=== PATIENT | male | born 1960 | race Caucasian/White ===

== ENCOUNTER 2019-05-08 18:47 | Emergency (ER) | payer BC, SELFPAY ==
--- NOTE | ~2019-05-08 | XR_ITS ---
EXAMINATION: XR chest 2V 05/08/2019 19:37 INDICATION: Chest tightness. History of A. fib. PROCEDURE: 2 view chest COMPARISON: No prior studies for comparison. FINDINGS: The lungs are clear. The cardiomediastinal silhouette is within normal limits. There are no pleural effusions. There is no pneumothorax suspected. IMPRESSION: 1: NO ACUTE CARDIOPULMONARY DISEASE. Reviewed, dictated and finalized at location A. STRIAL FURNACE FABRICATOR
[2019-05-08 18:44] VITALS: BP 178/93; PULSE 69; RESP 14; TEMP 36.7; O2SAT 100
--- NOTE | 2019-05-08 18:50 | ECG_ITS ---
Measurements Intervals [place] Rate: 62 P: 24 NE: 142 QRS: -40 QRSD: 113 T: 4 QT: 392 QTc: 399 Interpretive Statements SINUS RHYTHM LEFT AXIS DEVIATION INTRAVENTRICULAR CONDUCTION DELAY NONSPECIFIC ST ELEVATION- ANTERIOR LEADS BORDERLINE T WAVE ABNORMALITY- INFERIOR LEADS BASELINE ARTIFACT- I, II, III, AVR, AVL BORDERLINE ECG Electronically Signed On 05-08-2019 20:50:55 CERTIFIED PROFESSIONAL ERGONOMIST by Alvin Cook D.O.
--- NOTE | 2019-05-08 19:07 | ED.CHESTPAIN ---
HPI - Chest Pain General Chief Complaint: Chest Pain Stated Complaint: chest pain Time Seen by Provider: 05/08/19 19:03 Source: patient Mode of arrival: EMS Limitations: no limitations History of Present Illness HPI narrative: A 58 y/o male presents to the ED with c/o midsternal chest tightness. Pt states that tonight at 1600 after he ate spaghetti and meatballs, the chest tightness started. He notes that the chest tightness has been constant and is accompanied by high blood pressure. Pt denies CP, N/V, diaphoresis, chills, and SOB. He does not note any aggravating or alleviating factors for his symptoms. Pt did not have any treatment prior to his arrival. He has a PMHx of AFjennifer. complaint: chest discomfort (Tightness) Onset (ago): hour(s) (3) Timing of current episode: constant Onset: after eating Pain location: other (Midsternal) Quality: tightness Relieving factors: nothing Exacerbating factors: nothing Associated symptoms: other (None) Treatment prior to arrival: none Related Data Home Medications Medication Instructions Recorded Confirmed albuterol sulfate 90 mcg/actuation 1 puff INHALATION Q4H PRN 05/01/19 aerosol inhaler Allergies Allergy/AdvReac Type Severity Reaction Status Date / Time No Known Allergies Allergy Mild Verified 05/08/19 19:00 Review of Systems Review of Systems: All systems reviewed & are unremarkable except as noted in HPI and below Constitutional: Constitutional: Denies chills Cardiovascular: Cardiovascular: Denies chest pain and Reports other (Chest tightness) Respiratory: Respiratory: Denies dyspnea Gastrointestinal: Gastrointestinal: Denies nausea and Denies vomiting Integumentary/Breasts: Skin/Breast: Denies other (Diaphoresis) [facility] Past Medical History Medical History (Updated 05/08/19 @ 23:48 by Pola Osborn MD) Asthma Atrial fibrillation Essential hypertension History of atrial fibrillation Wrist fracture Surgical History Surgical History (Updated 05/08/19 @ 19:11 by Mari Weaver) H/O wrist surgery Family History Family History Mother Diabetes mellitus Hypertension Father Lung cancer Social History Social History (Updated 05/08/19 @ 19:18 by Mari Weaver) Smoking packs per day: 1 Smoking cigarettes per day: 20.0 Years smoked: 7 Smoking pack-years: 7.00 Smoking status: Former smoker Alcohol intake: current Exam Const: General: healthy appearing, no acute distress and well developed Nutritional Appearance: well nourished Orientation/consciousness: patient oriented x3 (alert) and Other orientation findings (Alert) Limitations: no limitations HENMT: Head: normocephalic and atraumatic Ears: external ears normal General nose exam: No nasal discharge present and no epistaxis Face and sinus: face symmetric Mouth: Yes lip normal, Yes tongue normal and Yes moist mucous membranes Throat: other (No exudate, no erythema) Eyes: Conjunctivae: conjunctivae normal Sclera: sclerae normal EOM: EOMs intact bilaterally Neck: Neck: full ROM, no lymphadenopathy and supple Thyroid: thyroid normal Chest: Chest palpation & inspection: no tenderness Resp: Effort & Inspection: normal respiratory effort Auscultation: clear to auscultation bilaterally, no rales, no rhonchi, no wheezes and other (breath sounds equal) Cardio: Rate: regular rate Rhythm: regular rhythm Heart sounds: no gallops and no murmurs GI: Inspection: non-distended GI Palp: No abdominal tenderness and Yes Soft to palpation Auscultation: other (bowel sounds present) : General: Yes no CVA tenderness Back/Spine/Pelvis: Back: no CVA tenderness Thoracic/Lumbar Spine: thoracic and lumbar spine normal to inspection Skin: General skin exam: normal color and no rashes or lesions noted Neuro: General: patient oriented x3 (alert), moves all extremities and no focal motor deficits Cranial nerves: Yes facial symmetry Speec
[2019-05-08 19:13] VITALS: PULSE 70
[2019-05-08 19:35] LABS: Basophils Percent Auto 0.3 % (0.2-1.2); Eosinophils Absolute Auto 0.1 K/mm3 (0-0.3); Eosinophils Percent Auto 1.3 % (0-4.4); Hematocrit 43.8 % (42.0-52.0); Hemoglobin 15.2 g/dL (14.0-18.0); Immature Granulocyte Absolute 0.02 K/mm3 (0.00-0.031); Immature Granulocyte Percent A 0.3 % (0-0.5); Lymphocytes Absolute Auto 1.85 K/mm3 (0.9-3.2); Lymphocytes Percent Auto 27.7 % (18.3-44.2); Mean Corpuscular HGB Conc 34.7 g/dl (32-36); Mean Corpuscular Volume 86.6 fl (80-100); Mean Platelet Volume 9.3 fl (7.4-10.4); Monocytes Absolute Auto 0.6 K/mm3 (0.1-0.6); Monocytes Percent Auto 9.4 % (2.6-8.5); Neutrophils Absolute Auto 4.1 K/mm3 (1.3-6.7); Platelet Count Result 223 k/mm3 (150-375); Red Blood Count 5.06 M/mm3 (4.6-6.20); Red Cell Distribution Width 12.1 % (11.5-14.5); White Blood Count 6.7 K/mm3 (4.5-10.0)
[2019-05-08 19:46] LABS: INR 0.9; Partial Thromboplastin Time 25.2 SECONDS (22.3-36.8); Prothrombin Time 11.5 Seconds (11.1-14.7)
[2019-05-08 19:49] LABS: Blood Urea Nitrogen 17 mg/dL (9-20); Calcium 9.3 mg/dL (8.4-10.2); Carbon Dioxide 27 mmol/L (22-30); Chloride 99 mmol/L (98-107); Estimated CRCL calculation 113 ml/min; Estimated Glomerular Filt Rate > 60; Glucose 102 mg/dL (75-110); Potassium 4.2 mmol/L (3.4-5.0); Sodium 139 mmol/L (137-145)
[2019-05-08 20:01] LABS: Troponin I < 0.012 ng/mL (0.000-0.034)
[2019-05-08 22:22] LABS: Troponin I < 0.012 ng/mL (0.000-0.034)
[2019-05-08 23:13] VITALS: BP 138/84; PULSE 61; RESP 12; O2SAT 97
[2019-05-08 23:58] VITALS: BP 134/62; PULSE 60; RESP 16; O2SAT 99
== END 2019-05-08 23:59 | disposition home or self-care (01) ==
PROVIDERS: Emergency Provider Emergency Medicine; PCP Internal Medicine
DX: J45.909 Unspecified asthma, uncomplicated (principal); I48.91 Unspecified atrial fibrillation; I10 Essential (primary) hypertension; Z87.891 Personal history of nicotine dependence; I45.9 Conduction disorder, unspecified; R94.31 Abnormal electrocardiogram [ECG] [EKG]
CPT/HCPCS: 36415; 71046; 80048; 84484; 85025; 85610; 85730; 93005; 99284

== ENCOUNTER 2019-05-13 07:25 | Observation (INO) | payer BC, SELFPAY ==
[2019-05-13] VITALS (15 sets, daily range): BP systolic 110–193; BP diastolic 67–102; PULSE 46–83; RESP 12–20; TEMP 36.2–36.6; O2SAT 95–100; BMI 32.1
--- NOTE | 2019-05-13 07:40 | ED.CHESTPAIN ---
HPI - Chest Pain General Chief Complaint: Chest Pain Stated Complaint: Blood pressure high Time Seen by Provider: 05/13/19 07:30 Source: patient and family Mode of arrival: ambulatory Limitations: no limitations History of Present Illness HPI narrative: 58-year-old man comes in today of her having woke up early this morning with cold sweats, particularly in his hands and feet and his heart was racing. Shortly thereafter he had burning sensation in his chest. Patient was seen recently at another emergency department for chest pressure and elevated blood pressure. He denies shortness of breath, nausea, vomiting, cough, recent illness, and ankle swelling. On the 01 of May was prescribed losartan which he has not taken since the . He is concerned he is having allergic reaction to it. He denies wheezing, rash, swelling. He has a remote history of atrial fibrillation (1994) which resolved and he was taken of his meds. MD complaint: chest discomfort Pertinent past history: asthma Onset (ago): hour(s) (2) Timing of current episode: constant Onset: during rest and awoke with symptoms Pain location: left chest Pain radiation: none Severity: moderate Quality: tightness and burning Relieving factors: nothing Exacerbating factors: nothing Associated symptoms: diaphoresis Treatment prior to arrival: none Risk Factors Coronary artery disease risk factors: smoking history (remote) and hypertension Related Data Home Medications Medication Instructions Recorded Confirmed albuterol sulfate 90 mcg/actuation 1 puff INHALATION Q4H PRN 05/01/19 05/13/19 aerosol inhaler Allergies Allergy/AdvReac Type Severity Reaction Status Date / Time No Known Allergies Allergy Mild Verified 05/08/19 19:00 Review of Systems Constitutional: Constitutional: Denies chills and Denies fever(s) Eyes: Eyes: Denies change in vision and Denies photophobia ENT: Denies dysphagia, Denies nasal congestion and Denies sore throat Cardiovascular: Cardiovascular: Reports as per HPI and Denies radiating jaw, neck or arm pain Comments: Occasional palpitations Respiratory: Respiratory: Denies cough, Denies dyspnea and Denies wheezing Gastrointestinal: Gastrointestinal: Denies abdominal pain, Denies nausea and Denies vomiting Genitourinary: Genitourinary: Denies hematuria, Denies dysuria and Denies urinary frequency Musculoskeletal: Musculoskeletal: Denies back pain and Denies joint swelling Integumentary/Breasts: Skin/Breast: Denies pruritus, Denies erythema and Denies rash Neurologic: Denies vertigo, Denies syncope and Denies focal weakness Psychiatric: Psychiatric: Denies anxiety and Denies depression Endocrine: Endocrine: Denies polydipsia and Denies polyuria Hematologic/Lymphatic: Hematologic/Lymphatic: Denies easy bleeding and Denies easy bruising Allergic/Immunologic: Allergic/Immunologic: Denies lip swelling and Denies wheezing PMFSH Past Medical History Medical History Asthma Atrial fibrillation Essential hypertension History of atrial fibrillation Wrist fracture Surgical History Surgical History H/O wrist surgery Family History Family History Mother Diabetes mellitus Hypertension Father Lung cancer Social History Social History Smoking packs per day: 1 Smoking cigarettes per day: 20.0 Years smoked: 7 Smoking pack-years: 7.00 Smoking status: Former smoker Alcohol intake: current Exam Const: General: healthy appearing, no acute distress and alert Orientation/consciousness: patient oriented x3 HENMT: Head: normal to inspection Ears: TM's normal bilaterally Mouth: Yes Normal oral and palatal mucosa present and Yes moist mucous membranes Throat: posterior oropharynx normal and u
--- NOTE | 2019-05-13 07:48 | ECG_ITS ---
Measurements Intervals [place] Rate: 65 P: 4 NH: 149 QRS: -40 QRSD: 120 T: 27 QT: 396 QTc: 412 Interpretive Statements SINUS RHYTHM LEFT AXIS DEVIATION INTRAVENTRICULAR CONDUCTION DELAY BORDERLINE R WAVE PROGRESSION, ANTERIOR LEADS BASELINE WANDER- V2 BORDERLINE ECG Electronically Signed On 05-13-2019 8:58:29 POSITIVE PRINTER OPERATOR by Alvin Cook D.O.
[2019-05-13] MEDS: ASPIRIN 81 MG CHEWABLE TABLET 324 MG PO (07:51)
[2019-05-13] MEDS: NITROGLYCERIN SL 0.4 MG TABLET SUBLINGUAL (07:52)
[2019-05-13 07:58] LABS: Basophils Absolute Auto 0.01 K/mm3 (0.00-0.10); Basophils Percent Auto 0.2 % (0.0-1.0); Eosinophils Absolute Auto 0.05 K/mm3 (0.02-0.50); Eosinophils Percent Auto 0.8 % (1.0-6.0); Hemoglobin 15.7 g/dL (14.0-18.0); Immature Granulocyte Absolute 0.01 K/mm3 (0.00-0.00); Immature Granulocyte Percent A 0.2 % (0.0-0.0); Lymphocytes Absolute Auto 1.62 K/mm3 (1.10-4.50); Lymphocytes Percent Auto 24.9 % (18.0-42.0); Mean Corpuscular HGB Conc 35.7 g/dL (32.0-36.0); Mean Corpuscular Hemoglobin 30.4 pg (27.0-31.0); Mean Corpuscular Volume 85.3 fL (78.0-102.0); Mean Platelet Volume 8.9 fl (8.7-11.0); Monocytes Absolute Auto 0.48 K/mm3 (0.10-0.90); Monocytes Percent Auto 7.4 % (2.0-11.0); Neutrophils Absolute Auto 4.3 K/mm3 (1.7-7.2); Neutrophils Percent Auto 66.5 % (50.0-70.0); Platelet Count Result 220 K/mm3 (150-420); Red Blood Count 5.16 M/mm3 (4.70-6.10); Red Cell Distribution Width 11.6 % (11.6-14.4); White Blood Count 6.5 K/mm3 (4.8-10.8)
[2019-05-13 08:12] LABS: D Dimer 0.36 mg/L (0.19-0.50); Partial Thromboplastin Time 25.9 SEC (22.3-31.6); Prothrombin Time 10.1 Seconds (9.64-11.0)
[2019-05-13 08:15] LABS: Alanine Aminotransferase 50 U/L (16-63); Albumin Level 4.2 g/dL (3.4-5.0); Alkaline Phosphatase 85 U/L (46-116); Anion Gap 14.7 mmol/L (7-16); Aspartate Amino Transferase 24 U/L (15-37); Bilirubin,Total 0.8 mg/dL (0.00-1.00); Blood Urea Nitrogen 17 mg/dL (7-18); Calcium 8.8 mg/dL (8.5-10.1); Carbon Dioxide 27 mmol/L (21-32); Chloride 104 mmol/L (98-108); Estimated CRCL calculation 92 ml/min; Estimated Glomerular Filt Rate > 60; Glucose 105 mg/dL (70-99); Lipase 79 U/L (73-393); Osmolality Calculated 295 mOsm/kg (285-295); Potassium 3.7 mmol/L (3.5-5.1); Sodium 142 mmol/L (136-145); Total Protein 7.8 g/dL (6.4-8.2)
[2019-05-13 08:16] LABS: Troponin I < 0.02 ng/mL (0.00-0.056)
[2019-05-13 08:29] LABS: Add Urine Microscopic? NO; Appearance Urine Clear (Clear); Bilirubin Urine Negative (Negative); Blood Urine Negative (Negative); Color Urine Yellow (Yellow); Glucose Urine UA Negative (Negative); Ketones Urine Negative (Negative); Leukocyte Esterase Ur Negative LEU/UL (Negative); Nitrate Urine Negative (Negative); Protein Urine Negative (Negative); Specific Grav Ur 1.015 (1.010-1.020); Urobilinogen Urine 0.2 mg/dL (0.2-1.0); pH Urine 5.5 (5.0-8.0)
--- NOTE | 2019-05-13 09:30 | PC.NURSE ---
Pt. to be admitted for 23 hr. obs c tele. ERP discussed POC c pt.
[2019-05-13] MEDS: PANTOPRAZOLE SODIUM IV 40 MG VIAL IV PUSH (09:38)
--- NOTE | 2019-05-13 09:41 | PC.NURSE ---
Call placed to floor. Pt. to go to Rm 210. Awaiting call back to give report.
--- NOTE | 2019-05-13 10:42 | PM.IMHP ---
H&P: HPI History of Present Illness Chief complaint: Blood pressure high Narrative: Pola Orozco is a 58 year old male admitted with elevated blood pressure, left chest pain, heart palpitations, and getting serial Troponin levels. He came in today after having woke up early this morning with cold sweats, particularly in his hands and feet and his heart was racing. Shortly thereafter he had burning sensation in his chest. Patient was seen recently at [facility] emergency department for chest pressure and elevated blood pressure. He denies shortness of breath, nausea, vomiting, cough, recent illness, and ankle swelling. On the 01 of May, he was prescribed Losartan which he has not taken since the . He is concerned he is having allergic reaction to it. He denies wheezing, rash, swelling. He has a remote history of atrial fibrillation (1994) which resolved and he was taken of his meds. Also past history of smoking and asthma. 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 Dyson for his primary care physician. Pola is currently without chest pain or discomfort during my exam, no headache, arm pain or jaw pain, and denies palpitations at this time. Discussed his current s/s and past symptoms as well as family history. He agreed to stay overnight for full workup, received Metoprolol/ASA/Nitro in ED, monitor for better BP control, completion of serial troponins and ECHO in the morning. TSH was elevated, started on Levothyroxine today. Lipid panel fasting in the morning. Review of Systems Review of Systems: All systems reviewed & are unremarkable except as noted in HPI and below Constitutional: Constitutional: Reports as per HPI, Reports no additional constitutional complaints, Denies body ache(s), Denies chills, Reports difficulty sleeping, Denies fatigue, Denies fever(s), Denies lethargy, Reports night sweats and Denies weakness Eyes: Eyes: Reports as per HPI, Denies change in vision and Denies photophobia ENT: Reports as per HPI, Reports Normal hearing present, Denies dysphagia, Denies vertigo, Denies lip swelling, Denies nasal congestion, Denies nasal discharge and Denies sore throat Cardiovascular: Cardiovascular: Reports as per HPI, Denies chest pain, Denies diaphoresis, Denies syncope, Denies lightheadedness, Denies radiating jaw, neck or arm pain, Denies palpitations and Denies dyspnea Respiratory: Respiratory: Reports as per HPI, Denies chest congestion, Denies cough, Denies dyspnea, Denies dyspnea on exertion and Denies wheezing Gastrointestinal: Gastrointestinal: Reports as per HPI, Denies abdominal pain, Denies melena, Denies bloating, Denies constipation, Denies dysphagia, Denies diarrhea, Denies nausea and Denies vomiting Genitourinary: Genitourinary: Reports as per HPI, Denies hematuria, Denies dysuria and Denies urinary frequency Musculoskeletal: Musculoskeletal: Reports as per HPI, Denies back pain and Denies joint swelling Integumentary/Breasts: Skin/Breast: Reports as per HPI, Denies pruritus, Denies erythema and Denies rash Neurologic: Reports as per HPI, Denies vertigo, Denies syncope, Denies headache(s), Denies focal weakness and Denies numbness Psychiatric: Psychiatric: Reports as per HPI, Denies anxiety and Denies depression Endocrine: Endocrine: Denies polydipsia and Denies polyuria Hematologic/Lymphatic: Hematologic/Lymphatic: Denies easy bleeding and Denies easy bruising Allergic/Immunologic: Allergic/Immunologic: Denies lip swelling and Denies wheezing PMFSH Past Medical History Medical History Asthma Atrial fibrillation Essential hypertension History of atrial fibrillation Wrist fracture Surgical History Surgical History H/O wrist surgery Family History Family History Mother Diabetes mellitus Hyperte
[2019-05-13 11:12] LABS: Phosphorus 2.6 mg/dL (2.6-4.7)
[2019-05-13 11:28] LABS: BNP 20.2 pg/mL (0-100)
[2019-05-13 11:58] LABS: CRP 0.2 mg/dL (0.0-0.9)
[2019-05-13 12:05] LABS: Thyroid Stimulating Hormone 11.21 uIU/mL (0.36-3.74)
[2019-05-13 14:16] LABS: Troponin I < 0.02 ng/mL (0.00-0.056)
[2019-05-13] MEDS: LEVOTHYROXINE SODIUM 50 MCG TABLET PO (16:30)
--- NOTE | 2019-05-13 18:20 | PC.NURSE ---
pt resting in bed, states he has had no chest pain or gastric pain since he recieved the iv medicine in er, hob up, call light in reach
[2019-05-13 18:52] LABS: Troponin I < 0.02 ng/mL (0.00-0.056)
--- NOTE | 2019-05-13 19:06 | PC.NURSE ---
pt asks about cardiology consult, informed he has not been restarted on any bp meds, reports one episode of light headedness when sitting up suddenly, no pain, feels fine now, told to move slowly when sitting up from lying position and let legs dangle
--- NOTE | 2019-05-13 22:24 | PC.NURSE ---
pt appears to be sleeping , no s/sx of distress or pain, breathing even and unlabored, tele SR pulse of 58
--- NOTE | 2019-05-13 22:36 | PC.NURSE ---
pt pulse has dropped into high 40's on tele monitor, pt has recently turned from right side lying position to back, no s/sx of distress or sob observed, bed is flat
[2019-05-14 04:00] VITALS: BP 134/71; PULSE 46; RESP 12; TEMP 36.2; O2SAT 100
[2019-05-14 05:25] LABS: Basophils Absolute Auto 0.02 K/mm3 (0.00-0.10); Basophils Percent Auto 0.3 % (0.0-1.0); Eosinophils Absolute Auto 0.12 K/mm3 (0.02-0.50); Eosinophils Percent Auto 1.6 % (1.0-6.0); Hematocrit 43.7 % (40.0-54.0); Hemoglobin 14.9 g/dL (14.0-18.0); Immature Granulocyte Absolute 0.01 K/mm3 (0.00-0.00); Immature Granulocyte Percent A 0.1 % (0.0-0.0); Lymphocytes Absolute Auto 2.66 K/mm3 (1.10-4.50); Mean Corpuscular HGB Conc 34.1 g/dL (32.0-36.0); Mean Corpuscular Hemoglobin 29.3 pg (27.0-31.0); Mean Corpuscular Volume 85.9 fL (78.0-102.0); Mean Platelet Volume 9.2 fl (8.7-11.0); Monocytes Absolute Auto 0.65 K/mm3 (0.10-0.90); Monocytes Percent Auto 8.8 % (2.0-11.0); Neutrophils Absolute Auto 3.9 K/mm3 (1.7-7.2); Neutrophils Percent Auto 53.2 % (50.0-70.0); Platelet Count Result 226 K/mm3 (150-420); Red Blood Count 5.09 M/mm3 (4.70-6.10); Red Cell Distribution Width 11.7 % (11.6-14.4); White Blood Count 7.4 K/mm3 (4.8-10.8)
[2019-05-14 05:36] LABS: Anion Gap 13.7 mmol/L (7-16); Blood Urea Nitrogen 17 mg/dL (7-18); Calcium 8.3 mg/dL (8.5-10.1); Carbon Dioxide 28 mmol/L (21-32); Chloride 105 mmol/L (98-108); Estimated CRCL calculation 85 ml/min; Estimated Glomerular Filt Rate > 60; Glucose 100 mg/dL (70-99); Osmolality Calculated 297 mOsm/kg (285-295); Potassium 3.7 mmol/L (3.5-5.1); Sodium 143 mmol/L (136-145)
[2019-05-14 05:49] LABS: Cholesterol 246 mg/dL (0-200); HDL Direct 41 mg/dL (40-60); LDL Cholesterol Calculated 187 mg/dL (<130); Triglycerides 91 mg/dL (0-150)
[2019-05-14 05:52] LABS: Troponin I < 0.02 ng/mL (0.00-0.056)
[2019-05-14] MEDS: LEVOTHYROXINE SODIUM 50 MCG TABLET PO (05:55)
[2019-05-14 08:00] VITALS: BP 146/80; PULSE 80; RESP 20; TEMP 36.2; O2SAT 96
[2019-05-14] MEDS: lisinopriL 10 MG TABLET PO (09:41)
[2019-05-14 12:00] VITALS: BP 117/70; PULSE 62; PULSE 68; RESP 20; TEMP 36.3; O2SAT 99
--- NOTE | 2019-05-14 12:18 | PM.DS ---
DS: Diagnosis Admitting Diagnosis Admitting Diagnosis: Precordial pain Discharge Diagnosis (1) Chest pain: Onset Date: ~05/13/19 Qualifiers: Chest pain type: precordial pain Qualified Code(s): R07.2 - Precordial pain Code(s): R07.9 - Chest pain, unspecified Status: Acute Assessment and Plan: RESOLVED. admitted with elevated blood pressure, left chest pain, heart palpitations, and getting serial Troponin levels. On the 01 of May, he was prescribed Losartan which he has not taken since the . remote history of atrial fibrillation (1994) which resolved and he was taken of his meds. 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 Dyson for his primary care physician. Pola is currently without chest pain or discomfort during my exam, no headache, arm pain or jaw pain, and denies palpitations at this time. Discussed his current s/s and past symptoms as well as family history. Continuing Lisinopril 10mg daily, as it has controlled his BP nicely today and Pola feels better about taking that than the Losartan. Serial Troponins x 3 are WNL. ECHO was all WNL. Patient given a copy of the ECHO. TSH was elevated, started on Levothyroxine today. Lipid panel elevated, given Lipitor RX to start at home in 3-5 days, after having used his Lisinopril for a few days. (patient is weary about starting so many new medications at the same time, so encouarged him to add one at a time). (2) Heart palpitations: Onset Date: ~05/13/19 Code(s): R00.2 - Palpitations Status: Acute Assessment and Plan: RESOLVED. continuous telemetry showed episodes of bradycardia, lowest was overnight at 47bpm. instructed him to f/u with [employer] Operator and PCP this week. encouraged him to get a Sleep study as well. better BP control now with lisinopril serial troponins WNL ECHO was WNL. TSH was elevated, started on Levothyroxine today. Elevated lipids, ordered lipitor for discharge. Offered Holter Monitor at discharge, patient declined and stated that he wanted to wait until he see the [employer] Operator. (3) Essential hypertension: Onset Date: Unknown Code(s): I10 - Essential (primary) hypertension Status: Acute Assessment and Plan: IMPROVED. TREATED with Lisinopril . will need to F/U with PCP regularly and see [employer] Operator for further workup. Pola is currently without chest pain or discomfort during my exam, no headache, arm pain or jaw pain, and denies palpitations at this time. Ordered daily Lisinopril for home SBPs now 110-140s. (Improved from SBPs >170) (4) Hypothyroidism: Onset Date: ~05/13/19 Code(s): E03.9 - Hypothyroidism, unspecified Status: Acute Assessment and Plan: stated that he has gained weight in the last year and has not been as active as he could be he admitted to eating too much fried foods TSH was elevated at 11.21, started on Levothyroxine today. Lipid panel fasting in the morning. repeat TSH panel in 6 weeks to monitor for efficacy of medication encouraged weight loss, increase in activity levels, and work on increasing muscle mass. instructed him to discuss with his PCP (5) Bradycardia: Code(s): R00.1 - Bradycardia, unspecified Status: Acute Assessment and Plan: advised him to F/U with [employer] Operator, Electrolphysiologist if possible for further workup and monitoring. monitored overnight, lowest HR 47bpm advised him to get a Sleep Study completed as well. Holter Monitor at discharge. Avoiding beta carlos medications for HTN control. Treating his Hypothyroidism with daily Levothyroxine. DS: Summary Time Spent with Patient Time attestation: Total time spent providing and/or coordinating discharge services:>60 min Exam Const: General: healthy appearing, no acute distress and alert Orientation/consciousness: patient oriented x3 HENMT: Head: normal to inspect
--- NOTE | 2019-05-14 15:00 | ECHO_ITS ---
Patient Info Name: Pola Orozco Age: 58 years : 1960 Gender: Male Ht: 70 in Wt: 230 lbs BSA: 2.30 m2 HR: 62 bpm BP: 117 / 72 mmHg Technical Quality: Good Exam Date: 05/14/2019 2:03 PM Exam Location: [facility] Patient Status: Inpatient Admit Date: 05/13/2019 Staff Ordering Physician: Iman Rodriguez NP Glass Presser: Tariq White RDCS, RT Attending Provider: Trevor Eid MD Referring Physician: Michael BOWEN; Exam Type: CA echo doppler color flow Study Info Indications R07.89 - Other chest pain Complete two-dimensional, color flow and Doppler transthoracic echocardiogram is performed. Summary 1. Left ventricular chamber dimension is normal. 2. Left ventricular systolic function is normal, estimated at 60-65%. 3. The left ventricular diastolic function is normal. 4. E/e' 7 is not elevated. 5. Global longitudinal strain is abnormal at -14.7.%. 6. There is trace tricuspid valve regurgitation. Left Ventricle E/e' 7 is not elevated. Global longitudinal strain is abnormal at -14.7.%. Left ventricular chamber dimension is normal. Left ventricular systolic function is normal, estimated at 60-65%. The left ventricular diastolic function is normal. Right Ventricle Right ventricular chamber dimension is normal. Right ventricular systolic function is normal. Left Atria Left atrial chamber dimension is normal. Right Atria Right atrial chamber dimension is normal. Aortic Valve The aortic valve is trileaflet. There is no aortic valve stenosis. There is no aortic valve regurgitation. Pulmonic Valve There is no pulmonic regurgitation. Mitral Valve There is no mitral valve stenosis. There is no mitral valve regurgitation. Tricuspid Valve There is trace tricuspid valve regurgitation. RVSP is not calculated due to an inadequate TR jet. Pericardium/Pleural There is no pericardial effusion. Inferior Vena Cava Normal inferior vena cava with >50% collapse upon inspiration consistent with normal right atrial pressure, 5 mmHg. Aorta The aortic root size at the sinus of Valsalva is normal. Left Ventricular Outflow Tract Name Value Normal LVOT 2D LVOT Diameter 2.3 cm LVOT Doppler LVOT Peak Velocity 113 cm/s LVOT Peak Gradient 5 mmHg LVOT Mean Gradient 3 mmHg LVOT VTI 24 cm LVOT VTI/AV VTI Ratio 0.7 LVOT Stroke Volume 102 ml Pulmonic Valve Name Value Normal PV Doppler PV Peak Velocity 113 cm/s PV Peak Gradient 5 mmHg Mitral Valve Name Value Normal
[2019-05-14 16:00] VITALS: BP 118/83; PULSE 68; RESP 20; TEMP 36.4; O2SAT 96
--- NOTE | 2019-05-22 12:45 | PC.NURSE ---
Discharge call back [phone] Patient doing better since discharge. No questions about discharge instructions, verbalized understanding of discharge instructions.
== END 2019-05-14 17:45 | disposition home or self-care (01) ==
LOC: CHSED 09:29 → CHS2ND 09:55
PROVIDERS: Nurse Practitioner; Admitting Provider Emergency Medicine; Emergency Provider Emergency Medicine; PCP Internal Medicine; Visit Provider Emergency Medicine
DX: R00.2 Palpitations (principal); I48.91 Unspecified atrial fibrillation; I10 Essential (primary) hypertension; J45.909 Unspecified asthma, uncomplicated; E03.9 Hypothyroidism, unspecified
CPT/HCPCS: 36415; 80048; 80053; 80061; 81003; 83690; 83735; 83880; 84100; 84443; 84484; 85025; 85380; 85610; 85730; 86140; 93005; 93306; 96374; 99283; 99284; 99285; A9270; C9113; G0378

== ENCOUNTER 2019-07-23 14:21 | Outpatient (CLI) | payer BC, SELFPAY ==
[2019-07-23 15:38] LABS: Thyroid Stimulating Hormone Reflex 4.64 u/IU/mL (0.36-3.74)
[2019-07-23 16:40] LABS: Free T4 Free Thyroxine Reflex 0.74 ng/dL (0.76-1.46)
== END 2019-07-23 14:22 | disposition home or self-care (01) ==
LOC: CHSLAB 14:24
PROVIDERS: PCP Family Medicine; Visit Provider Family Medicine
DX: E03.9 Hypothyroidism, unspecified (principal)
CPT/HCPCS: 36415; 84439; 84443

== ENCOUNTER 2019-08-14 00:07 | Outpatient (CLI) | payer BC, SELFPAY ==
[2019-08-14 17:31] LABS: SARS-CoV-2 RNA PCR Negative
== END 2019-08-14 00:08 | disposition home or self-care (01) ==
LOC: ANHCOVIDDT 00:07
PROVIDERS: Visit Provider Internal Medicine Gastroenterology
DX: Z01.818 Encounter for other preprocedural examination (principal); Z11.59 Encounter for screening for other viral diseases
CPT/HCPCS: 87635; C9803; U0003

== ENCOUNTER 2019-08-16 01:36 | Day surgery (SDC) | payer BC, SELFPAY ==
[2019-08-08 10:42] VITALS: BMI 32.3
[2019-08-16 07:33] VITALS: BP 114/73; PULSE 52; RESP 14; TEMP 36.5; O2SAT 100
[2019-08-16] MEDS: LACTATED RINGERS 1,000 ML 150 ML IV CONT (07:45)
--- NOTE | 2019-08-16 07:52 | WPDANESEPPF ---
Anes - Initial Pre Proc Eval Procedure: Operation Date: 08/16/19 08:30 Proposed Procedures p Screening Colonoscopy - Pola Higginbotham MD Date/Time: 08/16/19 07:52 Surgeon: Pola Higginbotham MD Pre Op Diagnosis: Neoplasm Screening Patient Data Age: 59 Gender: M Height: 5 ft 11 in Weight: 104 kg Last Vital Signs Temp 36.5 C 08/16/19 07:33 Pulse 52 L 08/16/19 07:33 Resp 14 08/16/19 07:33 BP 114/73 08/16/19 07:33 Pulse Ox 100 08/16/19 07:33 Allergies Allergy/AdvReac Type Severity Reaction Status Date / Time No Known Allergies Allergy Mild Verified 08/16/19 07:31 Home Medications Medication Instructions Recorded Confirmed Type albuterol sulfate 90 mcg/actuation 1 puff INHALATION Q4H PRN 05/01/19 08/08/19 History aerosol inhaler atorvastatin 20 mg PO BEDTIME 30 Days #60 tablet 05/14/19 08/08/19 Rx pantoprazole [Protonix] 40 mg PO QAM 30 Days #30 tablet 05/14/19 08/08/19 Rx coenzyme Q10 [CoQ-10] 100 mg PO DAILY 05/31/19 08/08/19 History lisinopril 10 mg tablet 10 mg PO DAILY 30 Days #30 tablet 06/11/19 08/08/19 Rx polyethylene glycol 3350 17 gram 17 gm PO DAILY PRN #30 each 07/23/19 08/08/19 Rx oral powder packet hydrocortisone acetate 25 mg 25 mg RECTAL DAILY #24 each 07/25/19 08/08/19 Rx rectal suppository levothyroxine 50 mcg tablet 50 mcg PO DAILY@0630 30 Days #30 07/25/19 08/16/19 Rx tablet Patient hx anesthesia problems: none Family hx anesthesia problems: none PMFSH Past Medical History Medical History Asthma Atrial fibrillation Essential hypertension (Unknown) History of atrial fibrillation Wrist fracture Surgical History Surgical History H/O wrist surgery Family History Family History Mother Diabetes mellitus Hypertension Edema Father Lung cancer Metastatic cancer to brain Sibling Diverticulitis Other Diverticulitis Sibling Pacemaker AICD (automatic cardioverter/defibrillator) present Social History Social History Smoking status: Former smoker Tobacco type: cigarettes Second hand tobacco smoke exposure: Yes Additional smoking assessment comments: Quit at age 25. Smoked for 7yrs. Alcohol intake: never Substance use: never Substance use type: does not use Gender identity (if verbalized by the patient): Male Spiritual care concerns: No Agree to blood products: No Anes - Eval Final PreProcedure Day of Procedure 08/16/19 07:52 Patient weight: obese Heart: regular rate and rhythm Lungs: clear to auscultation Airway: Mallampati scale class II Neurological: alert and oriented Last oral intake: >/= 8 hours ASA classification: III Emergent: no Anesthetic plan: proceed Anesthesia type and monitoring: general GIVS and standard monitoring Informed Consent: The patient's anesthetic plan and its attendant risks and benefits were discussed with the patient/family/POA. Questions were solicited and answers provided to the satisfaction of the patient/family/POA.
--- NOTE | 2019-08-16 08:31 | WPDGICN ---
Assessment and Plan Assessment and plan (1) Colon cancer screening: Code(s): Z12.11 - Encounter for screening for malignant neoplasm of colon Status: Acute (2) History of atrial fibrillation: Code(s): Z86.79 - Personal history of other diseases of the circulatory system Status: Acute GI Consult Note Consult date/time: 08/16/19 08:31 HPI: Pola Orozco is a 59 year old male Seen in evaluation at the request of Dr. Conrado Shi DO. patient presents for neoplasia screening colonoscopy. He has never had a colonoscopy before. Current weight appetite bowel movements are normal. He denies any bleeding. He does report having had discomfort and fullness at the anus. He states that he felt a bump developed in this area over the last 1 month. There has been no recent pain in no ongoing bleeding. Family history is noncontributory no known history of colon or rectal disease. Review of Systems Review of Systems: All systems reviewed & are unremarkable except as noted in HPI and below PMFSH Past Medical History Medical History Asthma Atrial fibrillation Essential hypertension (Unknown) History of atrial fibrillation Wrist fracture Surgical History Surgical History H/O wrist surgery Family History Family History Mother Diabetes mellitus Hypertension Edema Father Lung cancer Metastatic cancer to brain Sibling Diverticulitis Other Diverticulitis Sibling Pacemaker AICD (automatic cardioverter/defibrillator) present Social History Social History Smoking status: Former smoker Tobacco type: cigarettes Second hand tobacco smoke exposure: Yes Additional smoking assessment comments: Quit at age 25. Smoked for 7yrs. Alcohol intake: never Substance use: never Substance use type: does not use Gender identity (if verbalized by the patient): Male Spiritual care concerns: No Agree to blood products: No Meds Home Medications and Allergies Home Medications Medication Instructions Recorded Confirmed Type albuterol sulfate 90 mcg/actuation 1 puff INHALATION Q4H PRN 05/01/19 08/08/19 History aerosol inhaler atorvastatin 20 mg PO BEDTIME 30 Days #60 tablet 05/14/19 08/08/19 Rx pantoprazole [Protonix] 40 mg PO QAM 30 Days #30 tablet 05/14/19 08/08/19 Rx coenzyme Q10 [CoQ-10] 100 mg PO DAILY 05/31/19 08/08/19 History lisinopril 10 mg tablet 10 mg PO DAILY 30 Days #30 tablet 06/11/19 08/08/19 Rx polyethylene glycol 3350 17 gram 17 gm PO DAILY PRN #30 each 07/23/19 08/08/19 Rx oral powder packet hydrocortisone acetate 25 mg 25 mg RECTAL DAILY #24 each 07/25/19 08/08/19 Rx rectal suppository levothyroxine 50 mcg tablet 50 mcg PO DAILY@30 30 Days #30 07/25/19 08/16/19 Rx tablet Allergies Allergy/AdvReac Type Severity Reaction Status Date / Time No Known Allergies Allergy Mild Verified 08/16/19 07:31 Vital Signs Vital Signs - 24 hr 08/16/19 07:33 Temperature 36.5 C Pulse Rate 52 L Respiratory Rate 14 Blood Pressure 114/73 Pulse Oximetry 100 Exam Narrative: Exam Narrative: Physical exam reveals patient to be alert. HEENT exam unremarkable. He is anicteric. Lungs are clear to auscultation and percussion. Heart is without murmur or extra sounds. Abdominal exam bowel sounds are present soft nontender with no hepatosplenomegaly. Digital external rectal exam reveals a Thrombosed external hemorrhoid.
[2019-08-16 09:00] VITALS: BP 106/63; PULSE 54; RESP 16; O2SAT 98
[2019-08-16 09:10] VITALS: BP 105/73; PULSE 51; RESP 16; O2SAT 98
[2019-08-16 09:20] VITALS: BP 118/57; PULSE 45; RESP 16; O2SAT 98
== END 2019-08-16 09:43 | disposition home or self-care (01) ==
PROVIDERS: PCP Family Medicine; Visit Provider Internal Medicine Gastroenterology
PROC: 0DJD8ZZ Inspection of Lower Intestinal Tract, Via Natural or Artificial Opening Endoscopic (ICD-10-PCS; CPT 45378; principal; 2019-08-16 08:30)
DX: Z12.11 Encounter for screening for malignant neoplasm of colon (principal); K64.8 Other hemorrhoids; K64.4 Residual hemorrhoidal skin tags; I10 Essential (primary) hypertension; J45.909 Unspecified asthma, uncomplicated; Z87.891 Personal history of nicotine dependence; E66.9 Obesity, unspecified; Z68.32 Body mass index [BMI] 32.0-32.9, adult
CPT/HCPCS: 45378; J2704; J7120

== ENCOUNTER 2019-08-27 09:56 | Outpatient (CLI) | payer BC, SELFPAY ==
[2019-08-27 10:58] LABS: Alanine Aminotransferase 33 U/L (16-63); Albumin Level 3.8 g/dL (3.4-5.0); Alkaline Phosphatase 100 U/L (46-116); Anion Gap 10.3 mmol/L (7-16); Aspartate Amino Transferase 23 U/L (15-37); Bilirubin,Total 0.4 mg/dL (0.00-1.00); Blood Urea Nitrogen 21 mg/dL (7-18); Calcium 8.5 mg/dL (8.5-10.1); Carbon Dioxide 31 mmol/L (21-32); Chloride 103 mmol/L (98-108); Cholesterol 152 mg/dL (0-200); Estimated Glomerular Filt Rate > 60; Glucose 96 mg/dL (70-99); HDL Direct 43 mg/dL (40-60); LDL Cholesterol Calculated 100 mg/dL (<130); Osmolality Calculated 293 mOsm/kg (285-295); Potassium 4.3 mmol/L (3.5-5.1); Sodium 140 mmol/L (136-145); Total Protein 6.9 g/dL (6.4-8.2); Triglycerides 45 mg/dL (0-150)
[2019-08-27 11:18] LABS: Thyroid Stimulating Hormone Reflex 3.01 u/IU/mL (0.36-3.74)
== END 2019-08-27 09:57 | disposition home or self-care (01) ==
LOC: CHSLAB 09:58
PROVIDERS: PCP Family Medicine; Visit Provider Internal Medicine Cardiovascular Disease
DX: E78.5 Hyperlipidemia, unspecified (principal); E03.9 Hypothyroidism, unspecified
CPT/HCPCS: 36415; 80053; 80061; 84443

== ENCOUNTER 2019-08-29 08:10 | Outpatient (CLI) | payer BC, SELFPAY ==
--- NOTE | 2019-08-29 09:28 | EST_ITS ---
Patient Info Name: Pola Orozco Age: 59 years : 1960 Gender: Male Ht: 71 in Wt: 232 lbs BSA: 2.33 m2 Exam Date: 08/29/2019 9:55 AM Exam Location: [facility] Stress Patient Status: Outpatient Admit Date: 08/29/2019 Staff Ordering Physician: Alvin Cook DO Attending Provider: Alvin Cook DO Exercise Technologist: Tariq White RDCS, RT Exercise Physician: Alvin Cook DO Exam Type: CA stress test treadmill Study Info An exercise stress test was performed. Summary 1. 1. Negative Long exercise stress test for ischemic ST changes by ECG criteria. 2. 2. Reduced functional capacity, achieving 7 METs of workload. 3. 3. Appropriate HR response to exercise. 4. 4. Appropriate HR recovery at 1 minute post exercise. 5. 5. No imaging with stress testing. 6. 6. Patient informed of the above results. Protocol: Long Stress ECG Details Stage: REST Duration (min): 1 min : 44 sec Speed (mph): 0.0 Grade (%): 0 HR (bpm): 50 SBP (mmHg): 117 DBP (mmHg): 73 METS: --- Stage: REST Duration (min): 16 min : 39 sec Speed (mph): 0.0 Grade (%): 0 HR (bpm): 52 SBP (mmHg): 117 DBP (mmHg): 73 METS: --- Stage: STAGE 1 Duration (min): 1 min : 0 sec Speed (mph): 1.7 Grade (%): 10 HR (bpm): 94 SBP (mmHg): 117 DBP (mmHg): 73 METS: --- Stage: STAGE 1 Duration (min): 2 min : 0 sec Speed (mph): 1.7 Grade (%): 10 HR (bpm): 112 SBP (mmHg): 117 DBP (mmHg): 73 METS: --- Stage: STAGE 1 Duration (min): 3 min : 0 sec Speed (mph): 1.7 Grade (%): 10 HR (bpm): 117 SBP (mmHg): 184 DBP (mmHg): 76 METS: --- Stage: STAGE 2 Duration (min): 1 min : 0 sec Speed (mph): 2.5 Grade (%): 12 HR (bpm): 133 SBP (mmHg): 184 DBP (mmHg): 76 METS: --- Stage: STAGE 2 Duration (min): 2 min : 0 sec Speed (mph): 2.5 Grade (%): 12 HR (bpm): 139 SBP (mmHg): 180 DBP (mmHg): 76 METS: --- Stage: STAGE 2 Duration (min): 3 min : 0 sec Speed (mph): 2.5 Grade (%): 12 HR (bpm): 142 SBP (mmHg): 180 DBP (mmHg): 76 METS: --- Stage: STAGE 3 Duration (min): 0 min : 26 sec Speed (mph): 3.4 Grade (%): 14 HR (bpm): 155 SBP (mmHg): 180 DBP (mmHg): 76 METS: --- Stage: RECOVERY Duration (min): 0 min : 33 sec Speed (mph): 0.0 Grade (%): 0 HR (bpm): 142 SBP (mmHg): 204 DBP (mmHg): 77 METS: --- Stage: RECOVERY Duration (min): 1 min : 33 sec Speed (mph): 0.0 Grade (%): 0 HR (bpm): 115 SBP (mmHg): 204 DBP (mmHg): 77 METS: --- Stage: RECOVERY Duration (min): 2 min : 33 sec Speed (mph): 0.0 Grade (%): 0 HR (bpm): 104 SBP (mmHg): 204 DBP (mmHg): 77 METS: --- Stage: RECOVERY Duration (min): 3 min : 15 sec Speed (mph): 0.0 Grade (%): 0 HR (bpm): 91 SBP (mmHg):
== END 2019-08-29 08:11 | disposition home or self-care (01) ==
PROVIDERS: PCP Family Medicine; Visit Provider Internal Medicine Cardiovascular Disease
DX: R07.9 Chest pain, unspecified (principal)
CPT/HCPCS: 93017

== ENCOUNTER 2019-10-03 08:40 | Emergency (ER) | payer BC, SELFPAY ==
--- NOTE | ~2019-10-03 | XR_ITS ---
EXAMINATION: XR chest 1V portable 10/03/2019 09:41 INDICATION: Chest palpitation PROCEDURE: AP portable chest COMPARISON: 05/08/2019 FINDINGS: The lungs are clear. The cardiomediastinal silhouette is within normal limits. There are no pleural effusions. There is no pneumothorax suspected. IMPRESSION: 1: NO ACUTE CARDIOPULMONARY DISEASE. Reviewed, dictated and finalized at location B.
[2019-10-03 08:45] VITALS: BP 138/104; PULSE 132; RESP 20; TEMP 36.6; O2SAT 99
[2019-10-03 08:50] VITALS: PULSE 132
--- NOTE | 2019-10-03 08:53 | ECG_ITS ---
Measurements Intervals [place] Rate: 102 P: [place]: 0 QRS: -10 QRSD: 105 T: 41 QT: 330 QTc: 431 Interpretive Statements ATRIAL FIBRILLATION WITH RAPID VENTRICULAR RESPONSE BORDERLINE R WAVE PROGRESSION, ANTERIOR LEADS ABNORMAL ECG Electronically Signed On 10-03-2019 9:11:19 CDT by Alvin Cook D.O.
--- NOTE | 2019-10-03 08:55 | ED.ARRPALP ---
HPI - Arrhythmia/Palpitations General Chief Complaint: Arrhythmia/Palpitations Stated Complaint: PALPITATIONS Source: patient Mode of arrival: ambulatory Limitations: no limitations History of Present Illness HPI narrative: 59-year-old male awoken at 5:00 a.m. by chest palpitations which decreased after an hour and a half but persists. Symptoms are associated with feeling lightheaded and very tired. He has no chest pain, shortness of breath, nausea, vomiting, sweating. He has identical brief fluttering episodes occurring every 3 or 4 months. His 1st episode of atrial fibrillation was in 1992. It lasted for about 19 hours. He was admitted to [facility] with chest tightness on May 13. Telemetry showed bradycardia; no episodes of atrial fibrillation. He followed up with Dr. Salvador. Stress test a few weeks ago was normal. Reports a normal echo; no record in the chart. He denies recreational drug use or use of decongestants. He was diagnosed with hypothyroidism 4 months ago; started on levothyroxine. He takes lisinopril for hypertension and Lipitor for hyperlipidemia Related Data Home Medications Medication Instructions Recorded Confirmed albuterol sulfate 90 mcg/actuation 1 puff INHALATION Q4H PRN 05/01/19 10/03/19 aerosol inhaler coenzyme Q10 [CoQ-10] 100 mg PO DAILY 05/31/19 10/03/19 Allergies Allergy/AdvReac Type Severity Reaction Status Date / Time No Known Allergies Allergy Mild Verified 09/24/19 09:05 Review of Systems Constitutional: Constitutional: Denies chills and Denies fever(s) ENT: Denies sore throat Cardiovascular: Cardiovascular: Reports no additional cardiovascular complaints Respiratory: Respiratory: Reports no additional respiratory complaints Gastrointestinal: Gastrointestinal: Denies diarrhea, Denies nausea and Denies vomiting Genitourinary: Comments: multiple episodes of urinating last PM. Musculoskeletal: Musculoskeletal: Denies back pain Integumentary/Breasts: Skin/Breast: Denies rash Neurologic: Denies syncope Endocrine: Endocrine: Reports polyuria PMFSH Social History Social History Smoking status: Former smoker Tobacco type: cigarettes Second hand tobacco smoke exposure: Yes Additional smoking assessment comments: Quit at age 25. Smoked for 7yrs. Alcohol intake: never Substance use: never Substance use type: does not use Gender identity (if verbalized by the patient): Male Spiritual care concerns: No Agree to blood products: No Exam Const: General: no acute distress Orientation/consciousness: patient oriented x3 Eyes: Conjunctivae: normal conjunctivae Neck: Neck: no lymphadenopathy Other: 2+ carotids, no bruit. Chest: Chest palpation & inspection: normal inspection of the chest Resp: Effort & Inspection: not labored Auscultation: clear to auscultation bilaterally Cardio: Rhythm: abnormal rhythm Heart sounds: no murmurs GI: Other: soft and nontender Back/Spine/Pelvis: Back: no CVA tenderness Skin: General skin exam: normal color Rashes: no rashes Neuro: General: patient oriented x3 Extrem: General: normal to inspection Course Vital Signs Vital signs: Vital Signs Temperature 36.6 C 10/03/19 08:45 Pulse Rate 132 H 10/03/19 08:45 Respiratory Rate 20 10/03/19 08:45 Blood Pressure 138/104 H 10/03/19 08:45 Pulse Oximetry 99 10/03/19 08:45 Temperature 36.9 C 10/03/19 11:47 Pulse Rate 72 10/03/19 12:04 Respiratory Rate 14 10/03/19 12:04 Blood Pressure 95/61 L 10/03/19 12:04 Pulse Oximetry 97 10/03/19 12:04 MDM - Arrhythmia/Palpitations Lab Data Attestation: I reviewed the patient's lab results. Lab results narrative: TSH 3.68 Troponin negative Acute a. fib with minor (<112) RVR which decreased after IV metoprolol. Pt. started on NOAC. Given NOAC bleeding precautions. Fol
[2019-10-03 09:34] LABS: Basophils Absolute Auto 0.01 K/mm3 (0.00-0.10); Basophils Percent Auto 0.2 % (0.0-1.0); Eosinophils Absolute Auto 0.05 K/mm3 (0.02-0.50); Eosinophils Percent Auto 0.8 % (1.0-6.0); Hematocrit 44.4 % (40.0-54.0); Hemoglobin 15.5 g/dL (14.0-18.0); Immature Granulocyte Absolute 0.01 K/mm3 (0.00-0.00); Immature Granulocyte Percent A 0.2 % (0.0-0.0); Lymphocytes Absolute Auto 1.34 K/mm3 (1.10-4.50); Lymphocytes Percent Auto 20.4 % (18.0-42.0); Mean Corpuscular HGB Conc 34.9 g/dL (32.0-36.0); Mean Corpuscular Hemoglobin 30.5 pg (27.0-31.0); Mean Corpuscular Volume 87.4 fL (78.0-102.0); Mean Platelet Volume 9.3 fl (8.7-11.0); Monocytes Percent Auto 6.1 % (2.0-11.0); Neutrophils Absolute Auto 4.8 K/mm3 (1.7-7.2); Neutrophils Percent Auto 72.3 % (50.0-70.0); Platelet Count Result 202 K/mm3 (150-420); Red Blood Count 5.08 M/mm3 (4.70-6.10); Red Cell Distribution Width 11.8 % (11.6-14.4); White Blood Count 6.6 K/mm3 (4.8-10.8)
[2019-10-03 10:01] LABS: Alanine Aminotransferase 45 U/L (16-63); Albumin Level 3.7 g/dL (3.4-5.0); Alkaline Phosphatase 101 U/L (46-116); Aspartate Amino Transferase 28 U/L (15-37); Bilirubin,Total 0.4 mg/dL (0.00-1.00); Blood Urea Nitrogen 16 mg/dL (7-18); Calcium 8.8 mg/dL (8.5-10.1); Carbon Dioxide 28 mmol/L (21-32); Chloride 103 mmol/L (98-108); Estimated CRCL calculation 84 ml/min; Estimated Glomerular Filt Rate > 60; Glucose 107 mg/dL (70-99); Osmolality Calculated 283 mOsm/kg (285-295); Sodium 136 mmol/L (136-145); Total Protein 7.2 g/dL (6.4-8.2)
[2019-10-03 10:03] LABS: Thyroid Stimulating Hormone 3.68 uIU/mL (0.36-3.74); Troponin I < 0.02 ng/mL (0.00-0.056)
[2019-10-03 10:27] VITALS: PULSE 115
[2019-10-03] MEDS: METOPROLOL TARTRATE INJ 5 MG/5 ML VIAL IV PUSH (10:27)
[2019-10-03 10:29] VITALS: BP 119/67; PULSE 106; RESP 20; O2SAT 96
[2019-10-03] MEDS: APIXABAN 2.5 MG TABLET 5 MG PO (10:39)
--- NOTE | 2019-10-03 11:13 | PC.NURSE ---
Report to Reza Humphrey
[2019-10-03 11:26] LABS: Add Urine Microscopic? NO; Appearance Urine Clear (Clear); Bilirubin Urine Negative (Negative); Blood Urine Negative (Negative); Color Urine Yellow (Yellow); Glucose Urine UA Negative (Negative); Ketones Urine Negative (Negative); Leukocyte Esterase Ur Negative (Negative); Nitrate Urine Negative (Negative); Protein Urine Negative (Negative); Urobilinogen Urine 0.2 mg/dL (0.2-1.0); pH Urine 7.5 (5.0-8.0)
[2019-10-03 11:47] VITALS: BP 127/74; PULSE 85; RESP 16; TEMP 36.9; O2SAT 99
--- NOTE | 2019-10-03 11:48 | PC.NURSE ---
erp at bedside discussing plan of care
[2019-10-03 12:04] VITALS: BP 95/61; PULSE 72; RESP 14; O2SAT 97
== END 2019-10-03 12:07 | disposition home or self-care (01) ==
PROVIDERS: Emergency Provider Family Medicine; PCP Family Medicine
DX: I48.20 Chronic atrial fibrillation, unspecified (principal)
CPT/HCPCS: 36415; 71045; 80053; 81003; 84443; 84484; 85025; 93005; 96374; 99284; A9270

== ENCOUNTER 2019-11-05 16:05 | Outpatient (CLI) | payer BC, SELFPAY ==
--- NOTE | 2019-11-05 16:15 | ECG_ITS ---
Measurements Intervals [place] Rate: 45 P: 34 [place]: 134 QRS: -9 QRSD: 137 T: 28 QT: 489 QTc: 423 Interpretive Statements SINUS BRADYCARDIA INTRAVENTRICULAR CONDUCTION DELAY BORDERLINE T WAVE ABNORMALITY- INFERIOR LEADS ABNORMAL ECG Electronically Signed On 11-05-2019 17:24:12 CDT by Alvin Cook D.O.
== END 2019-11-05 16:06 | disposition home or self-care (01) ==
LOC: CHSCARD 16:07
PROVIDERS: PCP Family Medicine; Visit Provider Internal Medicine Cardiovascular Disease
DX: I48.0 Paroxysmal atrial fibrillation (principal)
CPT/HCPCS: 93005

== ENCOUNTER 2019-11-06 10:07 | Outpatient (CLI) | payer BC, SELFPAY ==
[2019-11-06 11:38] LABS: Alanine Aminotransferase 28 U/L (16-63); Albumin Level 3.7 g/dL (3.4-5.0); Alkaline Phosphatase 84 U/L (46-116); Anion Gap 6 mmol/L (8-16); Aspartate Amino Transferase 18 U/L (15-37); Bilirubin,Total 0.7 mg/dL (0.00-1.00); Blood Urea Nitrogen 18 mg/dL (7-18); Calcium 8.6 mg/dL (8.5-10.1); Carbon Dioxide 31 mmol/L (21-32); Chloride 103 mmol/L (98-108); Cholesterol 243 mg/dL (0-200); Estimated Glomerular Filt Rate > 60; Glucose 90 mg/dL (70-99); HDL Direct 41 mg/dL (40-60); LDL Cholesterol Calculated 180 mg/dL (<130); Osmolality Calculated 291 mOsm/kg (285-295); Potassium 4.6 mmol/L (3.5-5.1); Sodium 140 mmol/L (136-145); Total Protein 7.1 g/dL (6.4-8.2); Triglycerides 110 mg/dL (0-150)
== END 2019-11-06 10:08 | disposition home or self-care (01) ==
LOC: CHSLAB 10:10
PROVIDERS: PCP Family Medicine; Visit Provider Internal Medicine Cardiovascular Disease
DX: E78.5 Hyperlipidemia, unspecified (principal)
CPT/HCPCS: 36415; 80053; 80061

== ENCOUNTER 2020-01-29 09:08 | Outpatient (CLI) | payer BC, SELFPAY ==
[2020-01-29 10:30] LABS: Alanine Aminotransferase 38 U/L (16-63); Albumin Level 3.9 g/dL (3.4-5.0); Alkaline Phosphatase 96 U/L (46-116); Anion Gap 7 mmol/L (8-16); Aspartate Amino Transferase 20 U/L (15-37); Bilirubin,Total 0.5 mg/dL (0.00-1.00); Blood Urea Nitrogen 22 mg/dL (7-18); Calcium 8.9 mg/dL (8.5-10.1); Carbon Dioxide 29 mmol/L (21-32); Chloride 104 mmol/L (98-108); Cholesterol 178 mg/dL (0-200); Estimated Glomerular Filt Rate > 60; Glucose 107 mg/dL (70-99); HDL Direct 43 mg/dL (40-60); LDL Cholesterol Calculated 118 mg/dL (<130); Osmolality Calculated 293 mOsm/kg (285-295); Potassium 4.2 mmol/L (3.5-5.1); Sodium 140 mmol/L (136-145); Triglycerides 86 mg/dL (0-150)
== END 2020-01-29 09:09 | disposition home or self-care (01) ==
LOC: CHSLAB 09:10
PROVIDERS: PCP Family Medicine; Visit Provider Internal Medicine Cardiovascular Disease
DX: E78.5 Hyperlipidemia, unspecified (principal); I10 Essential (primary) hypertension; I48.91 Unspecified atrial fibrillation
CPT/HCPCS: 36415; 80053; 80061

== ENCOUNTER 2020-01-30 09:59 | Outpatient (CLI) | payer BC, SELFPAY ==
[2020-01-30 12:55] LABS: Thyroid Stimulating Hormone Reflex 3.84 u/IU/mL (0.36-3.74)
[2020-02-02 12:11] LABS: T4 Thyroxine 8.1 mcg/dL (4.9-10.5)
[2020-02-04 10:55] LABS: T3 Reverse 16 ng/dL (8-25); Total Triiodothyronine (T3) 123 ng/dL (76-181)
== END 2020-01-30 10:00 | disposition home or self-care (01) ==
LOC: CHSLAB 10:00
PROVIDERS: PCP Family Medicine; Visit Provider Family Medicine
DX: E03.9 Hypothyroidism, unspecified (principal)
CPT/HCPCS: 36415; 84436; 84439; 84443; 84480; 84482

== ENCOUNTER 2020-05-15 08:47 | Outpatient (CLI) | payer BC, SELFPAY ==
[2020-05-15 10:32] LABS: Thyroid Stimulating Hormone Reflex 3.61 u/IU/mL (0.36-3.74)
[2020-05-15 10:33] LABS: Free T4 Free Thyroxine 0.99 ng/dL (0.76-1.46)
[2020-05-19 20:39] LABS: T4 Thyroxine 8.3 mcg/dL (4.9-10.5)
== END 2020-05-15 08:48 | disposition home or self-care (01) ==
LOC: CHSLAB 08:50
PROVIDERS: PCP Family Medicine; Visit Provider Family Medicine
DX: E03.9 Hypothyroidism, unspecified (principal)
CPT/HCPCS: 36415; 84436; 84439; 84443